=== PATIENT | female | born 1995 | race Caucasian/White ===

== ENCOUNTER 2021-01-26 14:16 | Emergency (ER) | payer OTHER, SELFPAY ==
[2021-01-26 14:28] VITALS: BP 114/80; PULSE 78; RESP 16; TEMP 35.8; O2SAT 100
[2021-01-26 14:33] VITALS: BP 114/80; PULSE 78; RESP 16; TEMP 35.8; O2SAT 100
--- NOTE | 2021-01-26 15:00 | ED.URI ---
HPI - URI/Sore Throat General Chief Complaint: Upper Respiratory Infection Stated Complaint: Congestion Time Seen by Provider: 01/26/21 14:50 Source: patient Mode of arrival: ambulatory Limitations: no limitations History of Present Illness HPI Narrative: 25-year-old female who presents to [facility] with complaints of upper respiratory congestion with nasal drainage. some upper chest discomfort, and feelings of dyspnea since Monday. Patient denies any fevers. chills, or sweats, denies any sore throat or any ear pain.She reports that she has been taking DayQuil and NyQuil for her symptoms with no resolution. reports that boyfriend has had same symptoms and he was COVID tested and reports he was negative. Patient has not had any COVID vaccinations. MD elicited complaint: nasal congestion Related Data Home Medications Medication Instructions Recorded Confirmed Iud 01/26/21 valacyclovir 01/26/21 Allergies Allergy/AdvReac Type Severity Reaction Status Date / Time No Known Allergies Allergy Verified 01/26/21 14:18 Review of Systems Review of Systems: CONSTITUTIONAL: Denies fever, chills, or sweats. EYES: Denies visual changes, redness, or discharge. ENT: positive rhinorrhea, congestion,no sore throat, or otalgia. CARDIOVASCULAR: States some upper chest discomfort,denies any pressure sensation, palpitations, or edema. RESPIRATORY: Positive dry cough and states some dyspnea GASTROINTESTINAL: Denies abdominal pain, nausea, vomiting, or diarrhea. GENITOURINARY: Denies dysuria or hematuria. SKIN: Denies rash or itching. MUSCULOSKELETAL: Denies back pain, joint pain, or myalgia. NEUROLOGIC: Denies headache, numbness, or weakness. PSYCHIATRIC: Denies anxiety or depression. All systems reviewed & are unremarkable except as noted in HPI and below PMFSH Past Medical History Medical History (Updated 01/27/21 @ 00:01 by Marilia Olvera) Bronchitis Pleurisy Surgical History Surgical History (Updated 01/29/21 @ 20:27 by Iman Hinojosa NP) No history of previous surgery Family History Family History (Updated 01/29/21 @ 20:26 by Iman Hinojosa NP) Other No significant family history Social History Social History (Updated 01/26/21 @ 15:24 by Iman Hinojosa NP) Smoking status: Former smoker Additional smoking assessment comments: quit 3 years ago Alcohol intake: current Alcohol use details: rare social Substance use: never Living arrangements: with family Gender identity (if verbalized by the patient): Female Comments At time of signature, agree with nursing past medical, surgical, social and family history. There is no relevant family history pertinent to the presenting complaint Exam Narrative: GENERAL: Well-appearing, well-nourished, and in no acute distress. HEAD: Normocephalic, atraumatic. EYES: PERRLA and EOMI. ENT: Nares red and turbinates swollen, clear to light yellow tinged rhinorrhea no epistaxis. Mucous membranes moist.TM's normal with good light refleX, throat red with no lesions or exudates or tonsil enlargement, post nasal drainage present NECK: Supple.no lymphadenopathy CHEST: Clear to auscultation. No respiratory distress.dry cough, speaks in ull sentences, no tachypnea noted SAO2 100% ON ROOM AIR, HEART: Regular rate and rhythm. No murmur heard. Normal peripheral pulses. ABDOMEN: Soft, nontender, nondistended, normal active bowel sounds. EXTREMITIES: Normal range of motion. No edema. SKIN: Warm, dry, no rash. NEURO: No focal deficits. Alert and oriented x3. Course Vital Signs Vital signs: Vital Signs Temperature 35.8 C L 01/26/21 14:28 Pulse Rate 78 01/26/21 14:28 Respiratory Rate 16 01/26/21 14:28 Blood Pressure 114/80 01/26/21 14:28 Pulse Oximetry 100 01/26/21 14:28 Temperature 35.8 C L 01/26/21 14:33 Pulse Rate 78 01/26/21 14:33 Respiratory Rate 16 01/26/21 14:33 Blood Pressure 114/80 01/26/21 14:33 Pulse Oximetry
[2021-01-27 15:30] LABS: SARS-CoV-2 RNA PCR Negative
== END 2021-01-26 16:02 | disposition home or self-care (01) ==
PROVIDERS: Emergency Provider Registered Nurse
DX: R05 Cough (principal); J06.9 Acute upper respiratory infection, unspecified; Z20.822 Contact with and (suspected) exposure to COVID-19; Z87.891 Personal history of nicotine dependence
CPT/HCPCS: 87081; 87880; 99203; C9803; G0463; U0003; U0005

== ENCOUNTER 2021-04-16 13:28 | Emergency (ER) | payer OTHER, SELFPAY ==
[2021-04-16 13:37] VITALS: BP 106/64; PULSE 63; RESP 18; TEMP 36.8; O2SAT 100
--- NOTE | 2021-04-16 13:49 | ED.EAR ---
HPI - Ear Problem General Chief complaint: Ear Stated complaint: Ear Pain Time Seen by Provider: 04/16/21 13:40 Source: patient, RN notes reviewed and old records reviewed Mode of arrival: ambulatory Limitations: no limitations History of Present Illness HPI Narrative: 25-year-old female who presents to [facility] with complaints of 1 week duration of stuffy nose and bilateral ear problems.Patient reports that she has some pain to her left ear, decreased hearing from her left ear and she has been feeling dizzy. Patient reports that she has taken some Emily and some Benadryl which has helped with the dizziness but continues to have some discomfort to left ear with hearing decreased. Patient states that she has had problems with her ears a lot over the years. MD Complaint: ear pain and decreased hearing Location: left ear Duration: constant Severity: mild Related Data Home Medications Medication Instructions Recorded Confirmed Iud 01/26/21 valacyclovir 01/26/21 Allergies Allergy/AdvReac Type Severity Reaction Status Date / Time No Known Allergies Allergy Verified 01/26/21 14:18 Review of Systems Review of Systems: CONSTITUTIONAL: Denies fever, chills, or sweats. EYES: Denies visual changes, redness, or discharge. ENT positive for rhinorrhea, congestion,no sore throat,left ear otalgia. CARDIOVASCULAR: Denies chest pain, palpitations, or edema. RESPIRATORY: Denies cough or dyspnea. GASTROINTESTINAL: Denies abdominal pain, nausea, vomiting, or diarrhea. GENITOURINARY: Denies dysuria or hematuria. SKIN: Denies rash or itching. MUSCULOSKELETAL: Denies back pain, joint pain, or myalgia. NEUROLOGIC: Denies headache, numbness, or weakness, intermittent dizziness. PSYCHIATRIC: Denies anxiety or depression. All systems reviewed & are unremarkable except as noted in HPI and below PMFSH Past Medical History Medical History (Updated 04/19/21 @ 09:01 by Iman Hinojosa NP) Bronchitis Ear problems Pleurisy Ulcer, gastric, acute Surgical History Surgical History (Updated 04/19/21 @ 09:01 by Iman Hinojosa NP) History of placement of ear tubes Family History Family History Other No significant family history Social History Social History Smoking status: Former smoker Additional smoking assessment comments: quit 3 years ago Alcohol intake: current Alcohol use details: rare social Substance use: never Gender identity (if verbalized by the patient): Female Comments At time of signature, agree with nursing past medical, surgical, social and family history. There is no relevant family history pertinent to the presenting complaint Exam Narrative: GENERAL: Well-appearing, well-nourished, and in no acute distress. HEAD: Normocephalic, atraumatic. EYES: PERRLA and EOMI. ENT: Nares patent, clear rhinorrhea no epistaxis. Mucous membranes moist. TM's normal with dull light reflex noted to left ear, throat pink with no lesions exudates or tonsil enlargement. NECK: Supple.no lymphadenopathy CHEST: Clear to auscultation. No respiratory distress.SAO2 100% on room air, no cough or any tachypnea noted. HEART: Regular rate and rhythm. No murmur heard. Normal peripheral pulses. ABDOMEN: Soft, nontender, nondistended, normal active bowel sounds. EXTREMITIES: Normal range of motion. No edema. SKIN: Warm, dry, no rash. NEURO: No focal deficits. Alert and oriented x3. Course Vital Signs Vital signs: Vital Signs Temperature 36.8 C 04/16/21 13:37 Pulse Rate 63 04/16/21 13:37 Respiratory Rate 18 04/16/21 13:37 Blood Pressure 106/64 04/16/21 13:37 Pulse Oximetry 100 04/16/21 13:37 Temperature 36.8 C 04/16/21 13:37 Pulse Rate 63 04/16/21 13:37 Respiratory Rate 18 04/16/21 13:37 Blood Pressure 106/64 04/16/21 13:37 Pulse Oximetry 100 04/16/21 13:37 Med
== END 2021-04-16 13:58 | disposition home or self-care (01) ==
PROVIDERS: Emergency Provider Registered Nurse
DX: H69.93 Unspecified Eustachian tube disorder, bilateral (principal); Z87.891 Personal history of nicotine dependence
CPT/HCPCS: 99213; G0463